=== PATIENT | female | born 1995 | race Caucasian/White ===

== ENCOUNTER 2019-09-29 19:33 | Emergency (ER) | payer OTHER ==
[~2019-09-29] VITALS: Ht 160 cm; Wt 104.3 kg
--- NOTE | 2019-09-29 19:33 | NUR ---
PT [facility] BLS TO ER BED 08
[2019-09-29 19:40] VITALS: BP 112/67
--- NOTE | 2019-09-29 19:41 | NUR ---
PT ASSESSMENT COMPLETE. HOB ELEVATED. BEDRAIL X2 UP. WILL CONTINUE TO MONITOR.
--- NOTE | 2019-09-29 20:14 | NUR ---
PT HAD ONE EPISDOE OF VOMITTUS. DR. MUÑIZ NOTIFIED.
[2019-09-29] MEDS ORDERED: ONDANSETRON 4 MG ODT PO ONE (20:15)
--- NOTE | 2019-09-29 20:37 | NUR ---
PT AT THIS TIME DOES NOT WANT TO REMOVE CLOTHING DUE TO NECK PAIN. PER [employer] JUSTICE PT IS OKAY TO KEEP CLOTHING ON BUT ALL JEWELRY AND METAL MUST BE REMOVED.
--- NOTE | 2019-09-29 20:45 | NUR ---
PER DR. MUÑIZ PT DOES NOT NEED TEST FOR CT SCAN. RAD NOTIFIED.
--- NOTE | 2019-09-29 21:19 | NUR ---
PT RETURNED FROM CT VIA [facility]
--- NOTE | 2019-09-29 21:30 | NUR ---
PT REPORTS 10/[address] MUÑIZ NOTIFIED.
[2019-09-29 21:51] VITALS: BP 140/82
[2019-09-29] MEDS ORDERED: ACETAMINOPHEN EXTRA STRENGTH 500 MG TAB PO ONE (21:55)
--- NOTE | 2019-09-29 22:10 | NUR ---
PT REPORTS DECREASE IN PAIN 7/10.
--- NOTE | 2019-09-29 22:13 | NUR ---
Patient discharged with v/s stable. Written and verbal after care instructions given and explained. Patient verbalized understanding. Ambulatory with steady gait. All questions addressed prior to discharge. Advised to follow up with PMD.
== END 2019-09-29 22:13 | disposition home or self-care (01) ==
LOC: MED 19:33
DX: M54.2 Cervicalgia (principal); M25.512 Pain in left shoulder; V49.49XA Driver injured in collision with other motor vehicles in traffic accident, initial encounter; Y93.89 Activity, other specified; Y92.89 Other specified places as the place of occurrence of the external cause; Y99.8 Other external cause status
CPT/HCPCS: 70450; 71045; 72125; 99285; Q0092; Q0162